=== PATIENT | female | born 1945 | race African-American/Black ===

== ENCOUNTER 2019-01-05 10:28 | Emergency (ER) | payer OTHER ==
[~2019-01-05] VITALS: Ht 165.1 cm; Wt 75.0 kg
[2019-01-05] MEDS ORDERED: ACETAMINOPHEN 325MG TABLET PO ONE (11:45)
[2019-01-05] MEDS ORDERED: BACITRACIN ZINC OINT UDPKT TOP ONE (12:15)
[2019-01-05 12:20] VITALS: BP 165/77
== END 2019-01-05 12:22 | disposition home or self-care (01) ==
LOC: ER 10:28
DX: S80.12XA Contusion of left lower leg, initial encounter (principal); E11.9 Type 2 diabetes mellitus without complications; I10 Essential (primary) hypertension; W10.9XXA Fall (on) (from) unspecified stairs and steps, initial encounter; Y93.89 Activity, other specified; Y92.22 Religious institution as the place of occurrence of the external cause; Y99.8 Other external cause status
CPT/HCPCS: 72170; 73590; 99283

== ENCOUNTER 2025-06-28 10:45 | Emergency (ER) | payer OTHER ==
[~2025-06-28] VITALS: Ht 162.6 cm; Wt 75.0 kg
[2025-06-28 10:47] VITALS: O2SAT 95
[2025-06-28] MEDS: ONDANSETRON HCL 4MG/2ML INJ IV ONE (11:21)
[2025-06-28] MEDS: MORPHINE SULFATE 4 MG/ML INJ (FOR IV/IM USE) IV ONE (11:21)
[2025-06-28] MEDS: METHYLPREDNISOLONE SOD SUCC 40MG/ML (ACT-O-VIAL) IV ONE (11:21)
[2025-06-28 11:30] LABS: BASOPHILS % 0.8 % (0.0-2.0); EOSINOPHILS % 0.9 % (0.0-5.0); HEMATOCRIT. 46.8 % (36.0-48.0); HEMOGLOBIN. 15.1 g/dL (12.0-16.0); LYMPHOCYTES % 19.5 % (20.0-50.0); MEAN PLATELET VOLUME 8.3 fl (7.4-10.4); MONOCYTES % 6.1 % (2.0-8.0); NEUTROPHILS % 72.7 % (40.0-76.0); PLATELET 372 x1000/uL (130-400); RED BLOOD CELL COUNT 5.40 mill/uL (4.2-5.4); RED CELL DISTRIBUTION WIDTH 15.9 % (11.6-14.6)
[2025-06-28 11:53] LABS: CREATININE 1.4 mg/dL (0.6-1.0); TROPONIN I HIGH SENSITIVITY 14 ng/L (3.0-34); UREA NITROGEN BLOOD 15.0 mg/dL (9-23)
[2025-06-28] MEDS: IPRATROPIUM/ALBUTEROL 0.5-3(2.5)MG/3ML NEB HHN ONE (13:04)
[2025-06-28 13:53] LABS: TROPONIN I HIGH SENSITIVITY 15 ng/L (3.0-34)
[2025-06-28 14:24] VITALS: BP 148/82; PULSE 120; RESP 18; TEMP 36.9; O2SAT 98
== END 2025-06-28 14:54 | disposition short-term general hospital (02) ==
LOC: ER 10:45 → CMPBEDREQ 17:12
DX: J44.1 Chronic obstructive pulmonary disease with (acute) exacerbation (principal); E11.9 Type 2 diabetes mellitus without complications; I10 Essential (primary) hypertension
CPT/HCPCS: 99285; 96374; 96375; 71045; 80048; 83880; 85025; 84484; 36415; 94640; 93005; J2919; J2405; J2270